=== PATIENT | male | born 1960 | race Caucasian/White ===

== ENCOUNTER 2017-10-23 23:04 | Emergency (ER) | payer SELFPAY ==
[~2017-10-23] VITALS: Ht 167.6 cm; Wt 56.2 kg
[~2017-10-23 23:04] MED LIST: ASPIRIN81 M1 PO; ATENOLOL50 M1 PO; Atenolol NG; COUMADIN; LOVENOX30 MG/0.3 SC; MORPHINE SULFAT15 MG PO; PLAVIX75 MG PO; Tenormin PO; XANAX0.5 MG PO; aspirin; plavix; warfarin
[2017-10-24 00:12] LABS: HEMATOCRIT 38.1 % (38.0-50.0); HEMOGLOBIN 13.5 G/DL (12.5-16.6); MCH 29.9 PG (29.0-34.0); MCHC 35.4 G/DL (30.0-36.0); MCV 84.5 FL (86-99); PLATELET COUNT 192 K/uL (156-360); RBC DIS.WIDTH-CV 12.4 % (11.8-14.6); RBC DIS.WIDTH-SD 37.1 % (39-53); RED BLOOD COUNT 4.51 M/uL (4.00-5.50); WHITE BLOOD COUNT 8.9 K/uL (4.1-10.2)
[2017-10-24 00:13] LABS: APPEARANCE CLOUDY ((CLEAR)); BILIRUBIN NEGATIVE; BLOOD SMALL; COLOR YELLOW ((YELLOW)); GLUCOSE (STRIP) NEGATIVE; KETONES NEGATIVE; LEUKOCYTES NEGATIVE; NITRITE NEGATIVE; PROTEIN (STRIP) 30; SPECIFIC GRAVITY 1.021 (1.000-1.030)
[2017-10-24 00:19] LABS: ALBUMIN 4.5 g/dL (3.2-4.8)
[2017-10-24 00:20] LABS: CHLORIDE 103 mEq/L (99-109); POTASSIUM 4.1 mEq/L (3.7-5.4); SODIUM 139 mEq/L (136-147)
[2017-10-24 00:22] LABS: GLUCOSE 117 mg/dL (70-99); TOTAL PROTEIN 7.1 g/dL (6.4-8.3)
[2017-10-24 00:23] LABS: BACTERIA RARE /HPF; EPITHELIAL CELLS NONE SEEN /HPF; HYALINE CASTS 0-5 /LPF; MUCUS 4+ /LPF; UCUL ADDED? NO; WHITE BLOOD CELLS 0-5 /HPF (0-5)
[2017-10-24 00:24] LABS: INTER. NORMALIZED RATIO 1.8; TOTAL BILIRUBIN 2.5 mg/dL (0.0-1.0)
[2017-10-24 00:25] LABS: ALKALINE PHOSPHATASE 70 IU/L (3-129)
[2017-10-24 00:26] LABS: CREATININE 0.8 mg/dL (0.6-1.3); GFR ESTIMATE (CALCULATED) > 59 mL/min/ (58.99-99999); PTT 31.3 SEC (25-37)
[2017-10-24 00:27] LABS: AST (GOT) 13 IU/L (2-34); UREA NITROGEN (BUN) 14 mg/dL (9-23)
[2017-10-24 00:28] LABS: ALT (GPT) 11 IU/L (3-49)
[2017-10-24 02:40] VITALS: BP 114/74
== END 2017-10-24 03:27 | disposition left against medical advice (07) ==
LOC: EME 23:04
DX: R10.31 Right lower quadrant pain (principal); R31.9 Hematuria, unspecified; N28.1 Cyst of kidney, acquired; N20.0 Calculus of kidney; M43.06 Spondylolysis, lumbar region; M51.27 Other intervertebral disc displacement, lumbosacral region; I10 Essential (primary) hypertension; I25.2 Old myocardial infarction; Z86.73 Personal history of transient ischemic attack (TIA), and cerebral infarction without residual deficits; Z79.01 Long term (current) use of anticoagulants; Z79.82 Long term (current) use of aspirin; Z90.49 Acquired absence of other specified parts of digestive tract; K59.00 Constipation, unspecified
CPT/HCPCS: 74177; 80053; 81003; 85027; 85610; 85730; 99281; 99285; J3010; J7040

== ENCOUNTER 2017-12-08 12:27 | Emergency (ER) | payer OTHER ==
[~2017-12-08] VITALS: Ht 177.8 cm; Wt 58.3 kg
[2017-12-08 13:01] LABS: HEMATOCRIT 39.1 % (38.0-50.0); HEMOGLOBIN 13.9 G/DL (12.5-16.6); MCH 29.8 PG (29.0-34.0); MCHC 35.5 G/DL (30.0-36.0); MCV 83.7 FL (86-99); PLATELET COUNT 193 K/uL (156-360); RBC DIS.WIDTH-CV 12.5 % (11.8-14.6); RBC DIS.WIDTH-SD 37.8 % (39-53); RED BLOOD COUNT 4.67 M/uL (4.00-5.50); WHITE BLOOD COUNT 5.5 K/uL (4.1-10.2)
[2017-12-08 13:05] LABS: CHLORIDE 106 mEq/L (99-109); POTASSIUM 3.9 mEq/L (3.7-5.4); SODIUM 141 mEq/L (136-147)
[2017-12-08 13:07] LABS: GLUCOSE 91 mg/dL (70-99)
[2017-12-08 13:11] LABS: CREATININE 0.8 mg/dL (0.6-1.3); GFR ESTIMATE (CALCULATED) > 59 mL/min/ (58.99-99999); UREA NITROGEN (BUN) 12 mg/dL (9-23)
[2017-12-08 13:17] LABS: TROP-I INTERPRETATION NEGATIVE; TROPONIN-I < 0.01 ng/mL (0.0-0.30)
[2017-12-08 13:46] LABS: INTER. NORMALIZED RATIO 8.8
[2017-12-08 14:42] VITALS: BP 128/76
== END 2017-12-08 14:43 | disposition left against medical advice (07) ==
LOC: EME 12:27
DX: R07.9 Chest pain, unspecified (principal); R79.1 Abnormal coagulation profile; R42 Dizziness and giddiness; I25.2 Old myocardial infarction; Z95.5 Presence of coronary angioplasty implant and graft; Z86.73 Personal history of transient ischemic attack (TIA), and cerebral infarction without residual deficits; Z79.82 Long term (current) use of aspirin; I10 Essential (primary) hypertension; Z79.891 Long term (current) use of opiate analgesic; Z53.20 Procedure and treatment not carried out because of patient's decision for unspecified reasons
CPT/HCPCS: 71046; 80048; 84484; 85027; 85610; 93005; 99281; 99283